=== PATIENT | female | born 1965 | race Asian ===

== ENCOUNTER → 2018-01-29 | Outpatient (CLI) | payer OTHER ==
--- NOTE | 2018-01-29 16:33 | RADIOLOGY IMAGING REPORT ---
FACILITY: [facility] [place] PATIENT NAME: MELISSA SEAMAN : [id number] MR: [id number]: [id number] EXAM DATE: [id number] ORDERING PHYSICIAN: MARIA DEL ROSARIO SALMON TECHNOLOGIST: Ekta Mcdaniel PROCEDURE:BILATERAL DIGITAL SCREENING MAMMOGRAM WITH CAD ASSISTED INTERPRETATION & 3D TOMOSYNTHESIS COMPARISON:Prior mammograms 12/11/16, 12/08/15, 08/06/14, 07/14/13, 06/17/12, 06/15/11. INDICATIONS:SCREENING FINDINGS: Dense heterogeneous fibroglandular tissue is seen throughout the breasts. The parenchymal pattern has remained stable allowing for difference in mammographic technique & patient positioning. There is no evidence of malignant appearing mass, malignant appearing calcifications or other secondary sign of malignancy in either breast. DIAGNOSTIC CATEGORY 1--NEGATIVE. RECOMMENDATIONS: ROUTINE MAMMOGRAM AND CLINICAL EVALUATION. IMPRESSION: BIRADS 1: Negative. No significant abnormality is seen. Dictated by: Sue Thakur M.D. on 01/29/2018 at 14:30 Transcribed by: CLIFFORD on 01/29/2018 at 14:37 Approved by: Sue Thakur M.D. on 01/29/2018 at 16:32 [facility]
== END ==
LOC: MAMO 00:43
PROVIDERS: ATTEND Nurse Practitioner Family
DX: Z12.31 Encounter for screening mammogram for malignant neoplasm of breast (principal)
CPT/HCPCS: 77063; 77067